=== PATIENT | male | born 1950 | race Caucasian/White ===

== ENCOUNTER 2018-01-22 13:30 | Emergency (ER) | payer OTHER ==
[~2018-01-22] VITALS: Ht 172.7 cm; Wt 74.8 kg
[~2018-01-22 13:30] MED LIST: GLIPIZIDE2.5 MG/BO1 PO; METFORMIN HCL500 M1 PO; TRIGLIDE50 MG PO; ZETIA10 MG PO
[2018-01-22] MEDS ORDERED: METAXALONE800 MG (14:00)
[2018-01-22] MEDS ORDERED: FENOFIBRATE160 MG (14:01)
[2018-01-22] MEDS ORDERED: TAMS0.4C (14:01)
== END 2018-01-22 16:45 | disposition home or self-care (01) ==
LOC: ER 13:30
DX: M54.5 Low back pain (principal)